=== PATIENT | male | born 1945 | race Caucasian/White ===

== ENCOUNTER 2019-07-13 19:09 | Emergency (ER) | payer OTHER ==
[2019-07-13 20:36] LABS: Hemoglobin 13.3 g/dL (14.0-18.0); Mean Corpuscular HGB CONC 33.9 g/dL (32.0-36.0); Mean Corpuscular Hemoglobin 32.7 pg (27.0-31.0); Mean Corpuscular Volume 96.5 fL (78.0-98.0); Mean Platelet Volume 7.7 fL (7.4-10.4); Platelet Count 146 thou/uL (130-400); RBC Distribution Width 11.6 % (11.5-14.5); Red Blood Cell (RBC) Count 4.07 mill/uL (4.70-6.10); White Blood Cell (WBC) Count 6.1 thou/uL (4.8-10.8)
--- NOTE | 2019-07-13 20:52 | RAD ---
RADIOGRAPH CHEST 1 VIEW: 07/13/19 at 8:44 p.m. HISTORY: 74-year-old male with fever and cough. FINDINGS: There are no air space densities, pulmonary edema, pneumothorax, or cardiomegaly. The lateral costop hrenic angles are sharp. There are sternotomy wires. IMPRESSION: No acute cardiopulmonary findings. silvia [] POS: [facility]IN
[2019-07-13 20:54] LABS: Band 3 % (5-11); Hypochromia SLIGHT = 6-15 cells (100X) (0-5/hpf); Lymphocytes 2 % (21-51); MDiff Complete? YES; Monocytes 10 % (0-10); Neutrophil 85 % (42-75); Platelet Morphology Comment Appears Adequate
[2019-07-13 20:58] LABS: ALT (SGPT) 21 U/L (8-55); AST (SGOT) 21 U/L (5-34); Albumin 3.9 g/dL (3.4-4.8); Alkaline Phosphatase 78 U/L (40-110); Anion Gap 14 mmol/L (10-20); BUN (Urea Nitrogen) 16 mg/dL (8.4-25.7); Bilirubin, Total 1.1 mg/dL (0.2-1.2); Calc. Creatinine Clearance 0 mL/min (70-130); Calcium 8.4 mg/dL (7.8-10.44); Carbon Dioxide 19 mmol/L (23-31); Chloride 106 mmol/L (98-107); Estimated GFR-MDRD 57; Globulin 2.9 g/dL (2.4-3.5); Glucose 94 mg/dL (83-110); Potassium 4.1 mmol/L (3.5-5.1); Protein, Total 6.8 g/dL (5.8-8.1); Sodium 135 mmol/L (136-145)
[2019-07-13] MEDS ORDERED: Acetaminophen 500 MG TAB ONE (21:34)
[2019-07-14 18:27] LABS: SARS-CoV-2 MS2 Positive; SARS-CoV-2 N Gene Positive; SARS-CoV-2 S Gene Positive; SARS-CoV-2 orf1ab Positive
== END 2019-07-13 23:25 ==
LOC: ERS 19:09 → EEVIPCON 19:09 → ERS 23:25
DX: U07.1 COVID-19 (principal); R50.9 Fever, unspecified; R09.81 Nasal congestion; R05 Cough; B34.9 Viral infection, unspecified; I25.10 Atherosclerotic heart disease of native coronary artery without angina pectoris; I12.0 Hypertensive chronic kidney disease with stage 5 chronic kidney disease or end stage renal disease; N18.9 Chronic kidney disease, unspecified; E11.9 Type 2 diabetes mellitus without complications; D64.9 Anemia, unspecified; N40.0 Benign prostatic hyperplasia without lower urinary tract symptoms; Z87.891 Personal history of nicotine dependence; Z79.82 Long term (current) use of aspirin; Z79.899 Other long term (current) drug therapy
CPT/HCPCS: 36415; 71045; 80053; 85025; 87635; 87804; 93005; U0003